=== PATIENT | male | born 1975 | race Caucasian/White ===

== ENCOUNTER 2017-09-11 12:13 | Emergency (ER) | payer OTHER ==
[~2017-09-11] VITALS: Ht 179.1 cm; Wt 90.0 kg
[2017-09-11] MEDS ORDERED: LIDODERM 5% P1 PATCH TD (15:42)
[2017-09-11] MEDS ORDERED: PREDNISONE20 MG PO (15:42)
[2017-09-11] MEDS ORDERED: ATIVAN2 MG PO (15:42)
[2017-09-11] MEDS ORDERED: MOTRIN800 MG PO (15:42)
[2017-09-11 16:19] VITALS: BP 129/85
== END 2017-09-11 16:21 | disposition home or self-care (01) ==
LOC: EME 12:13
DX: M54.5 Low back pain (principal); G89.29 Other chronic pain; F17.200 Nicotine dependence, unspecified, uncomplicated
CPT/HCPCS: 72100; 99281; 99284; J7512